=== PATIENT | male | born 1965 | race Hispanic/Latino ===

== ENCOUNTER 2023-06-09 09:44 | Emergency (ER) | payer OTHER ==
[2023-06-09] MEDS ORDERED: Iopamidol-370 76% 500 ML MDV (1 ML CHARGE) ONE (09:53)
[2023-06-09] MEDS ORDERED: fentaNYL 50 mcg/mL 1 mL Vial ONE ×2 (09:56→11:08)
[2023-06-09 10:31] LABS: #Basophils 0.1 thou/uL (0.0-0.2); #Eosinphils 0.1 thou/uL (0.0-0.7); #Monocytes 0.5 thou/uL (0.11-0.59); #Neutrophils 5.9 thou/uL (1.40-6.50); %Basophils 0.7 % (0.0-1.0); %Eosinophils 0.9 % (0.0-10.0); %Lymphocytes 25.1 % (21.0-51.0); %Monocytes 5.1 % (0.0-10.0); %Neutrophils 63.8 % (42.0-75.0); Hematocrit 42.3 % (42.0-52.0); Hemoglobin 14.3 g/dL (14.0-18.0); Mean Corpuscular HGB CONC 33.8 g/dL (32.0-36.0); Mean Corpuscular Hemoglobin 30.8 pg (27.0-31.0); Mean Platelet Volume 9.3 fL (7.4-10.4); Platelet Count 250 10x3/uL (130-400); RBC Distribution Width 13.2 % (11.5-14.5); Red Blood Cell (RBC) Count 4.65 mill/uL (4.70-6.10); White Blood Cell (WBC) Count 9.2 10x3/uL (4.8-10.8)
[2023-06-09] MEDS ORDERED: Ondansetron PF 4 MG/2 ML Vial ONE (10:38)
[2023-06-09] MEDS ORDERED: Boostrix 0.5 ML (Tdap) VIAL (>/=7 yrs of age) ONE (10:38)
[2023-06-09 10:40] LABS: PTT 29.2 sec (22.9-36.1); Prothrombin Time 13.8 sec (12.0-14.7)
[2023-06-09 10:41] LABS: ALT (SGPT) 52 U/L (8-55); AST (SGOT) 105 U/L (5-34); Albumin 4.5 g/dL (3.5-5.0); Alcohol Less than 10.0 mg/dL (Less than 10); Alkaline Phosphatase 105 U/L (40-110); Anion Gap 16 mmol/L (10-20); BUN (Urea Nitrogen) 25 mg/dL (8.4-25.7); Bilirubin, Total 0.3 mg/dL (0.2-1.2); Calc. Creatinine Clearance 0 mL/min (70-130); Carbon Dioxide 19 mmol/L (22-29); Chloride 106 mmol/L (98-107); Estimated GFR 66; Globulin 3.1 g/dL (2.4-3.5); Glucose 130 mg/dL (70-105); Potassium 4.2 mmol/L (3.5-5.1); Protein, Total 7.6 g/dL (6.0-8.3); Sodium 137 mmol/L (136-145)
[2023-06-09] MEDS ORDERED: CEFAZOLIN 2 GM VIAL ONE (11:08)
[2023-06-09] MEDS ORDERED: HYDROmorphone 0.5 MG/0.5 ML SYRINGE ONE ×2 (12:01→12:37)
[2023-06-09] MEDS ORDERED: fentaNYL PF 100 MCG/2 ML SYRINGE ONE (12:37)
[2023-06-09] MEDS ORDERED: Thrombin 5000 UNITS/5 ML VIAL ONE (12:38)
[2023-06-09] MEDS ORDERED: Bupivacaine PF 0.5% 30 ML VIAL ONE (12:38)
[2023-06-09] MEDS ORDERED: EPINEPHrine 1 MG/ML AMP ONE (12:38)
[2023-06-09] MEDS ORDERED: Ondansetron PF 4 MG/2 ML Vial IVP PRN ×2 (12:51→12:53)
[2023-06-09] MEDS ORDERED: Ipratropium/Albuterol 3 ML NEB NEB PRN (12:51)
[2023-06-09] MEDS ORDERED: Promethazine HCl 25 MG/ML VIAL IM PRN (12:53)
[2023-06-09] MEDS ORDERED: diphenhydrAMINE 50 MG/ML VIAL IM PRN (12:53)
[2023-06-09] MEDS ORDERED: Naloxone HCl 0.4 mg/ml Vial IV PRN (12:53)
[2023-06-09] MEDS ORDERED: diphenhydrAMINE 25 MG CAP PO PRN (12:53)
[2023-06-09] MEDS ORDERED: HYDROmorphone 10 mg/100 ml CADD IVPB PRN (12:53)
[2023-06-09] MEDS ORDERED: diphenhydrAMINE 50 MG/ML VIAL IVP PRN (12:53)
[2023-06-09] MEDS ORDERED: Sodium Chloride 0.9% 1,000 ML IV SCH (13:00)
[2023-06-09] MEDS ORDERED: ACTIVE PCA FS SCH (13:00)
[2023-06-09] MEDS ORDERED: Acetaminophen 500 MG TAB PO SCH ×2 (13:15→18:00)
[2023-06-09] MEDS ORDERED: Senokot S 8.6-50 MG TAB PO SCH (21:00)
[2023-06-09] MEDS ORDERED: Famotidine/PF 20 mg/2ml Vial SLOW IVP SCH (21:00)
[2023-06-10] MEDS ORDERED: Polyethylene Glycol 3350 17 GM Packet PO SCH (09:00)
== END 2023-06-09 14:20 | disposition home or self-care (01) ==
LOC: ERS 09:44
DX: S22.081A Stable burst fracture of T11-T12 vertebra, initial encounter for closed fracture (principal); S22.41XA Multiple fractures of ribs, right side, initial encounter for closed fracture; R53.1 Weakness; Z23 Encounter for immunization; W18.30XA Fall on same level, unspecified, initial encounter
CPT/HCPCS: 36415; 51702; 70450; 71045; 71260; 72125; 74177; 80053; 80307; 83605; 85025; 85610; 85730; 86850; 86900; 86901; 90471; 90715; 93005; 96361; 96365; 96375; 96376; G0390; J0171; J1170; J2405; J3010; Q9967; S0020

== ENCOUNTER 2024-01-11 20:17 | Inpatient (IN) | payer OTHER ==
[2024-01-11 21:24] LABS: #Basophils 0.04 10x3/uL (0.0-0.2); %Basophils 0.2 % (0.0-1.0); %Eosinophils 3.1 % (0.0-10.0); %Lymphocytes 9.3 % (21.0-51.0); %Monocytes 5.4 % (0.0-10.0); %Neutrophils 81.3 % (42.0-75.0); Hematocrit 31.2 % (42.0-52.0); Hemoglobin 9.8 g/dL (14.0-18.0); Mean Corpuscular HGB CONC 31.4 g/dL (32.0-36.0); Mean Corpuscular Hemoglobin 26.4 pg (27.0-31.0); Mean Corpuscular Volume 84.1 fL (78.0-98.0); Mean Platelet Volume 7.6 fL (7.4-10.4); Platelet Count 868 10x3/uL (130-400); RBC Distribution Width 16.5 % (11.5-14.5); Red Blood Cell (RBC) Count 3.71 mill/uL (4.70-6.10)
[2024-01-11 21:42] LABS: Bilirubin Negative (Negative); Blood, Urine Large (Negative); Glucose, Urine (Dipstick) Negative (Negative); Ketone, Urine Negative (Negative); Leukocyte Negative (Negative); Nitrite Negative (Negative); Protein, Urine (Dipstick) > or equal to 300 mg/dL (Neg-Trace); Specific Gravity, Urine 1.025 (1.005-1.030); Urobilinogen 0.2 mg/dL (Less than 2)
[2024-01-11 21:48] LABS: Bacteria/HPF Rare-Few HPF (None Seen); CAUTI Indications for Culture Dysuria,urgency,freq; Clarity Hazy (Clear); RBC/HPF Greater than 50 HPF (0-3); Squamous Epithelial 0-3 HPF (0-3); WBC/HPF 21-50 HPF (0-3)
[2024-01-11 21:49] LABS: Urine Culture Reflex Yes Yes
[2024-01-11 21:54] LABS: ALT (SGPT) 10 U/L (8-55); AST (SGOT) 21 U/L (5-34); Albumin 2.2 g/dL (3.5-5.0); Alkaline Phosphatase 105 U/L (40-110); Anion Gap 16 mmol/L (10-20); BUN (Urea Nitrogen) 14 mg/dL (8.4-25.7); Bilirubin, Total 0.2 mg/dL (0.2-1.2); Calc. Creatinine Clearance 0 mL/min (70-130); Carbon Dioxide 23 mmol/L (22-29); Chloride 100 mmol/L (98-107); Estimated GFR 99; Globulin 5.2 g/dL (2.4-3.5); Glucose 126 mg/dL (70-105); Protein, Total 7.4 g/dL (6.0-8.3); Sodium 135 mmol/L (136-145)
[2024-01-11] MEDS ORDERED: Sodium Chloride 0.9% 100 ML ONE (22:28)
[2024-01-11] MEDS ORDERED: cefTRIAXone (ROCEPHIN) 2 GM VIAL ONE (22:28)
[2024-01-11] MEDS ORDERED: Ondansetron PF 4 MG/2 ML Vial IVP PRN (23:12)
[2024-01-12] MEDS: Vancomycin (BATCH) 1.75 GM in Premix 1 BAG IVPB SCH (00:34)
[2024-01-12] MEDS: Sodium Chloride 0.9% 1,000 ML IV SCH (01:04)
[2024-01-12 02:01] LABS: Lactic Acid 0.8 mmol/L (0.5-2.2)
[2024-01-12] MEDS: Cefepime 2 GM in Sodium Chloride 0.9% 100 ML IVPB SCH (05:06)
[2024-01-12] MEDS: Acetaminophen 325 MG TAB PO PRN (05:15)
[2024-01-12 06:14] LABS: #Basophils 0.04 10x3/uL (0.0-0.2); %Basophils 0.3 % (0.0-1.0); %Eosinophils 2.6 % (0.0-10.0); %Lymphocytes 11.2 % (21.0-51.0); %Monocytes 6.9 % (0.0-10.0); %Neutrophils 78.5 % (42.0-75.0); Hematocrit 28.1 % (42.0-52.0); Mean Corpuscular Hemoglobin 26.2 pg (27.0-31.0); Mean Corpuscular Volume 81.7 fL (78.0-98.0); Mean Platelet Volume 7.8 fL (7.4-10.4); Platelet Count 798 10x3/uL (130-400); RBC Distribution Width 16.6 % (11.5-14.5); Red Blood Cell (RBC) Count 3.44 mill/uL (4.70-6.10)
[2024-01-12 06:36] LABS: Anion Gap 13 mmol/L (10-20); BUN (Urea Nitrogen) 9 mg/dL (8.4-25.7); Calc. Creatinine Clearance 102 mL/min (70-130); Calcium 8.5 mg/dL (7.8-10.44); Carbon Dioxide 21 mmol/L (22-29); Chloride 106 mmol/L (98-107); Estimated GFR 107; Glucose 98 mg/dL (70-105); Potassium 3.6 mmol/L (3.5-5.1); Sodium 136 mmol/L (136-145)
[2024-01-12] MEDS ORDERED: Iopamidol-370 76% 500 ML MDV (1 ML CHARGE) ONE (11:25)
[2024-01-12] MEDS: Vancomycin 1 GM in Premix 1 BAG IVPB SCH (12:30)
[2024-01-12] MEDS: Oxacillin 2 GM in Sodium Chloride 0.9% 100 ML IVPB SCH (22:00)
[2024-01-13] MEDS: diphenhydrAMINE 50 MG/ML VIAL IVP SCH (05:23)
[2024-01-13] MEDS: Nicotine 14 MG PATCH TD SCH (16:40)
[2024-01-13] MEDS: HYDROcodone/Acetaminophen 5/325 mg Tablet PO PRN (16:41)
[2024-01-13] MEDS: CEFAZOLIN 2 GM in Sodium Chloride 0.9% 100 ML IVPB SCH (21:45)
[2024-01-14 05:57] LABS: #Basophils Less than 0.03 10x3/uL (0.0-0.2); %Basophils 0.2 % (0.0-1.0); %Eosinophils 4.3 % (0.0-10.0); %Lymphocytes 11.1 % (21.0-51.0); %Monocytes 4.7 % (0.0-10.0); %Neutrophils 79.1 % (42.0-75.0); Hematocrit 30.8 % (42.0-52.0); Hemoglobin 9.6 g/dL (14.0-18.0); Mean Corpuscular HGB CONC 31.2 g/dL (32.0-36.0); Mean Corpuscular Hemoglobin 25.5 pg (27.0-31.0); Mean Corpuscular Volume 81.7 fL (78.0-98.0); Mean Platelet Volume 7.9 fL (7.4-10.4); Platelet Count 728 10x3/uL (130-400); RBC Distribution Width 16.4 % (11.5-14.5); Red Blood Cell (RBC) Count 3.77 mill/uL (4.70-6.10)
[2024-01-14 07:09] LABS: Anion Gap 11 mmol/L (10-20); BUN (Urea Nitrogen) 10 mg/dL (8.4-25.7); Calc. Creatinine Clearance 105 mL/min (70-130); Calcium 8.9 mg/dL (7.8-10.44); Carbon Dioxide 23 mmol/L (22-29); Chloride 106 mmol/L (98-107); Estimated GFR 108; Glucose 92 mg/dL (70-105); Potassium 3.7 mmol/L (3.5-5.1); Sodium 136 mmol/L (136-145)
[2024-01-14] MEDS: metroNIDAZOLE 500 MG TAB PO SCH (15:55)
[2024-01-14] MEDS ORDERED: Bisacodyl 5 MG TAB PO PRN (20:49)
[2024-01-14] MEDS: Senokot S 8.6-50 MG TAB PO PRN (21:25)
[2024-01-15] MEDS ORDERED: Sodium Bicarbonate 2.5 MEQ/5 ML SDV ONE (08:30)
[2024-01-15] MEDS ORDERED: Lidocaine 1% PF 5 ML VIAL ONE (08:30)
[2024-01-15] MEDS: Morphine 2 MG/ML VIAL SLOW IVP PRN (21:56)
[2024-01-18 09:19] LABS: #Basophils 0.05 10x3/uL (0.0-0.2); %Basophils 0.5 % (0.0-1.0); %Eosinophils 5.9 % (0.0-10.0); %Lymphocytes 19.2 % (21.0-51.0); %Monocytes 6.1 % (0.0-10.0); %Neutrophils 67.9 % (42.0-75.0); Hemoglobin 9.1 g/dL (14.0-18.0); Mean Corpuscular HGB CONC 31.4 g/dL (32.0-36.0); Mean Corpuscular Hemoglobin 25.6 pg (27.0-31.0); Mean Corpuscular Volume 81.5 fL (78.0-98.0); Mean Platelet Volume 7.8 fL (7.4-10.4); Platelet Count 615 10x3/uL (130-400); RBC Distribution Width 16.5 % (11.5-14.5); Red Blood Cell (RBC) Count 3.56 mill/uL (4.70-6.10)
[2024-01-18 09:41] LABS: Anion Gap 13 mmol/L (10-20); BUN (Urea Nitrogen) 7 mg/dL (8.4-25.7); Calc. Creatinine Clearance 103 mL/min (70-130); Calcium 9.3 mg/dL (7.8-10.44); Carbon Dioxide 25 mmol/L (22-29); Chloride 102 mmol/L (98-107); Estimated GFR 108; Glucose 90 mg/dL (70-105); Sodium 136 mmol/L (136-145)
[2024-01-20 05:55] LABS: #Basophils 0.07 10x3/uL (0.0-0.2); %Basophils 0.8 % (0.0-1.0); %Eosinophils 4.9 % (0.0-10.0); %Lymphocytes 23.3 % (21.0-51.0); %Monocytes 7.1 % (0.0-10.0); %Neutrophils 63.4 % (42.0-75.0); Hematocrit 27.9 % (42.0-52.0); Hemoglobin 8.4 g/dL (14.0-18.0); Mean Corpuscular HGB CONC 30.1 g/dL (32.0-36.0); Mean Corpuscular Hemoglobin 25.1 pg (27.0-31.0); Mean Corpuscular Volume 83.3 fL (78.0-98.0); Mean Platelet Volume 7.8 fL (7.4-10.4); Platelet Count 679 10x3/uL (130-400); RBC Distribution Width 16.7 % (11.5-14.5); Red Blood Cell (RBC) Count 3.35 mill/uL (4.70-6.10)
[2024-01-20 06:10] LABS: Anion Gap 14 mmol/L (10-20); BUN (Urea Nitrogen) 9 mg/dL (8.4-25.7); Calc. Creatinine Clearance 102 mL/min (70-130); Calcium 9.1 mg/dL (7.8-10.44); Carbon Dioxide 23 mmol/L (22-29); Chloride 106 mmol/L (98-107); Estimated GFR 107; Glucose 86 mg/dL (70-105); Potassium 4.1 mmol/L (3.5-5.1); Sodium 139 mmol/L (136-145)
[2024-01-21 14:13] VITALS: BP 101/70; TEMP 97.5
== END 2024-01-21 14:17 | disposition home or self-care (01) | DRG 853 ==
LOC: ERS 20:17 → T4-A 22:45
PROVIDERS: ADMIT Internal Medicine; ATTEND Family Medicine
PROC: 0JBL0ZZ Excision of Right Upper Leg Subcutaneous Tissue and Fascia, Open Approach (ICD-10-PCS; principal; 2024-01-15)
PROC: 02HV33Z Insertion of Infusion Device into Superior Vena Cava, Percutaneous Approach (ICD-10-PCS; 2024-01-15)
DX: A41.02 Sepsis due to Methicillin resistant Staphylococcus aureus (principal); L89.314 Pressure ulcer of right buttock, stage 4; M46.28 Osteomyelitis of vertebra, sacral and sacrococcygeal region; N31.9 Neuromuscular dysfunction of bladder, unspecified; F17.210 Nicotine dependence, cigarettes, uncomplicated; E11.69 Type 2 diabetes mellitus with other specified complication; R31.9 Hematuria, unspecified; L89.159 Pressure ulcer of sacral region, unspecified stage; F44.4 Conversion disorder with motor symptom or deficit; D75.839 Thrombocytosis, unspecified; D50.9 Iron deficiency anemia, unspecified; Z79.899 Other long term (current) drug therapy
CPT/HCPCS: 36415; 36569; 51702; 71045; 72170; 72193; 76937; 77001; 80048; 80053; 81001; 83605; 85025; 86141; 87040; 87077; 87086; 87149; 87186; 93005; 93306; 94760; 96374; 96375; 97139; C1751; J0692; J0696; J1200; J2272; J2700; J3370; J3370-JW; J3490; J7050; Q9967

== ENCOUNTER 2024-01-22 08:46 | Emergency (ER) | payer OTHER | END 2024-01-22 10:30 | disposition home or self-care (01) | LOC: ERS 08:46 | DX: T83.098A Other mechanical complication of other urinary catheter, initial encounter (principal); F17.210 Nicotine dependence, cigarettes, uncomplicated | CPT/HCPCS: 51702; 99283 ==

== ENCOUNTER 2024-02-16 05:15 | Emergency (ER) | payer OTHER | END 2024-02-16 05:59 | disposition home or self-care (01) | LOC: ERS 05:15 | DX: T83.091A Other mechanical complication of indwelling urethral catheter, initial encounter (principal); F17.210 Nicotine dependence, cigarettes, uncomplicated; Z55.6 Problems related to health literacy | CPT/HCPCS: 51700 ==

== ENCOUNTER → 2024-02-27 | Day surgery (SDC) | payer OTHER | LOC: ONC/OP 17:06 | PROVIDERS: ATTEND Student in an Organized Health Care Education/Training Program | DX: Z45.2 Encounter for adjustment and management of vascular access device (principal); R78.81 Bacteremia; B95.61 Methicillin susceptible Staphylococcus aureus infection as the cause of diseases classified elsewhere; F17.210 Nicotine dependence, cigarettes, uncomplicated; Z91.048 Other nonmedicinal substance allergy status | CPT/HCPCS: 99211; G0463 ==

== ENCOUNTER 2024-04-23 08:31 | Day surgery (SDC) | payer OTHER ==
[2024-04-23 08:55] LABS: #Basophils 0.04 10x3/uL (0.0-0.2); %Basophils 0.4 % (0.0-1.0); %Eosinophils 2.1 % (0.0-10.0); %Lymphocytes 22.4 % (21.0-51.0); %Monocytes 6.9 % (0.0-10.0); %Neutrophils 67.9 % (42.0-75.0); Hematocrit 39.1 % (42.0-52.0); Hemoglobin 12.3 g/dL (14.0-18.0); Mean Corpuscular HGB CONC 31.5 g/dL (32.0-36.0); Mean Corpuscular Hemoglobin 26.6 pg (27.0-31.0); Mean Corpuscular Volume 84.4 fL (78.0-98.0); Mean Platelet Volume 7.8 fL (7.4-10.4); Platelet Count 558 10x3/uL (130-400); RBC Distribution Width 16.9 % (11.5-14.5); Red Blood Cell (RBC) Count 4.63 mill/uL (4.70-6.10)
[2024-04-23 09:11] LABS: INR-International Normal Ratio 0.9; Prothrombin Time 12.4 sec (12.0-14.7)
[2024-04-23 09:12] LABS: PTT 42.4 sec (22.9-36.1)
[2024-04-23] MEDS ORDERED: Lidocaine 1% PF 5 ML VIAL ONE ×2 (10:17→10:50)
[2024-04-23] MEDS ORDERED: Sodium Bicarbonate 2.5 MEQ/5 ML SDV ONE (10:17)
[2024-04-23] MEDS ORDERED: Lidocaine 2% 6 ML (Jelly) SYR ONE (10:31)
== END 2024-04-23 13:30 | disposition home or self-care (01) ==
LOC: CT 08:31
PROVIDERS: ATTEND Urology
PROC: 0T9B30Z Drainage of Bladder with Drainage Device, Percutaneous Approach (ICD-10-PCS; principal; 2024-04-23)
DX: R33.9 Retention of urine, unspecified (principal); G82.20 Paraplegia, unspecified; Z93.3 Colostomy status; L89.154 Pressure ulcer of sacral region, stage 4
CPT/HCPCS: 51102; 77012; 85025; 85610; 85730; C2627

== ENCOUNTER 2024-09-21 22:12 | Emergency (ER) | payer OTHER | END 2024-09-22 05:44 | disposition home or self-care (01) | LOC: ERS 22:12 | DX: T83.098A Other mechanical complication of other urinary catheter, initial encounter (principal); F17.210 Nicotine dependence, cigarettes, uncomplicated | CPT/HCPCS: 51798; 99282 ==

== ENCOUNTER 2025-04-30 20:06 | Emergency (ER) | payer OTHER | END 2025-04-30 23:41 | disposition home or self-care (01) | LOC: ERS 20:06 | DX: T83.091A Other mechanical complication of indwelling urethral catheter, initial encounter (principal); F17.210 Nicotine dependence, cigarettes, uncomplicated | CPT/HCPCS: 51102; 99283 ==